=== PATIENT | male | born 1950 | race Caucasian/White ===

== ENCOUNTER → 2016-12-01 | Outpatient (CLI) | payer OTHER ==
[~2016-12-01] MED LIST: CELEBREX200 MG PO; CRESTOR20 MG PO; DOCUSATE SODIU100 MG PO; ENDOCET 5-3251 EACH PO; HYDROCODON-ACE1 EAC8 PO; IRON325 M1 PO; LISINOPRIL20 MG PO; LOVENOX40 MG/0.4 SC; OMEPRAZOLE40 M1 PO; SIMVASTATIN20 MG PO; TRAMADOL HCL50 MG PO
== END | disposition home or self-care (01) ==
LOC: RAD 10:37
DX: M51.36 Other intervertebral disc degeneration, lumbar region (principal); M54.5 Low back pain
CPT/HCPCS: 72131

== ENCOUNTER 2017-06-23 20:10 | Observation (INO) | payer OTHER ==
[~2017-06-23] VITALS: Ht 172.7 cm; Wt 79.2 kg
[2017-06-23 21:06] LABS: HEMATOCRIT 43.6 % (38.0-50.0); MCH 29.7 PG (29.0-34.0); MCHC 32.8 G/DL (30.0-36.0); MCV 90.5 FL (86-99); MEAN PLAT.VOLUME 9.9 uM^3 (9.0-12.4); PLATELET COUNT 185 K/uL (156-360); RBC DIS.WIDTH-CV 12.9 % (11.8-14.6); RBC DIS.WIDTH-SD 42.6 % (39-53); RED BLOOD COUNT 4.82 M/uL (4.00-5.50); WHITE BLOOD COUNT 8.4 K/uL (4.1-10.2)
[2017-06-23 21:20] LABS: CHLORIDE 104 mEq/L (99-109); POTASSIUM 4.5 mEq/L (3.7-5.4); SODIUM 137 mEq/L (136-147)
[2017-06-23 21:21] LABS: GLUCOSE 103 mg/dL (70-99)
[2017-06-23 21:23] LABS: ANION GAP 10 MEQ/L (2-14)
[2017-06-23 21:25] LABS: GFR ESTIMATE (CALCULATED) 54 mL/min/
[2017-06-23 21:26] LABS: UREA NITROGEN (BUN) 21 mg/dL (9-23)
[2017-06-23 21:31] LABS: TROP-I INTERPRETATION NEGATIVE; TROPONIN-I < 0.01 ng/mL (0.0-0.30)
[2017-06-23] MEDS ORDERED: OMEPRAZOLE20 MG PO (22:15)
[2017-06-23] MEDS ORDERED: GABAPENTIN300 MG PO (22:16)
[2017-06-23] MEDS ORDERED: METOPROLOL TART25 MG PO (22:16)
[2017-06-23] MEDS ORDERED: HYDROCODON-ACE1 EAC9 PO (22:17)
[2017-06-23] MEDS ORDERED: MULTIVITAMIN1 EAC2 PO (22:17)
[2017-06-24 01:28] VITALS: BP 144/71
[2017-06-24 04:22] VITALS: BP 111/56
[2017-06-24 04:38] LABS: TROP-I INTERPRETATION NEGATIVE; TROPONIN-I 0.01 ng/mL (0.0-0.30)
[2017-06-24 05:16] LABS: HDL CHOLESTEROL 34 MG/DL (Desirable>=40); LDL CHOLESTEROL 51 mg/dL (Desirable<100); NON-HDL CHOLESTEROL 92 mg/dL (Desirable<160); TOTAL CHOLESTEROL 126 mg/dL (Desirable<200); TRIGLYCERIDES 205 MG/DL (Normal: <150)
[2017-06-24 09:01] VITALS: BP 108/60
[2017-06-24 09:23] VITALS: BP 102/45
[2017-06-24 10:04] LABS: TROP-I INTERPRETATION NEGATIVE; TROPONIN-I 0.02 ng/mL (0.0-0.30)
[2017-06-24] MEDS ORDERED: NITROSTAT0.4 MG SL (11:15)
[2017-06-24 11:39] VITALS: BP 133/69
== END 2017-06-24 15:13 | disposition home or self-care (01) ==
LOC: EXP 20:10 → EME 20:10 → EDOF 23:04 → 5WEST 23:04 → ENRESERV 23:11 → 5WEST 06-24 01:14
PROVIDERS: Physician Assistant Medical
DX: R07.9 Chest pain, unspecified (principal); R00.2 Palpitations; I12.9 Hypertensive chronic kidney disease with stage 1 through stage 4 chronic kidney disease, or unspecified chronic kidney disease; N18.3 Chronic kidney disease, stage 3 (moderate); E78.5 Hyperlipidemia, unspecified; M19.90 Unspecified osteoarthritis, unspecified site; F17.210 Nicotine dependence, cigarettes, uncomplicated; K21.9 Gastro-esophageal reflux disease without esophagitis; L50.9 Urticaria, unspecified; Z87.442 Personal history of urinary calculi; G89.29 Other chronic pain; Z96.652 Presence of left artificial knee joint; Z90.49 Acquired absence of other specified parts of digestive tract; Z83.3 Family history of diabetes mellitus; Z84.1 Family history of disorders of kidney and ureter
CPT/HCPCS: 71020; 80048; 80061; 84484; 85027; 93005; 99281; 99285; G0378; J0360; J1200; J1650; J2270; J7030; J7040; S0028